=== PATIENT | female | born 1955 ===

== ENCOUNTER 2017-11-14 09:19 | Emergency (ER) | payer BC, OTHER ==
--- NOTE | 2017-11-14 10:31 | UC ---
Upper Extremity HPI - HPI Summary HPI Summary: 62 Y/O female being seen for L shoulder pain x 3 days. 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 Since then mobility has been limited with C/O shooting pain down her arm. Symptoms have increased as she states she has continued to try to care for her mother. Has been taking Advil with some relief. Medical history and medications have been reviewed at this visit. Blood pressure is elevated with a positive medical history of HTN. Confirms that she takes medication as directed. has been under pressure and stressed. discussed checking BP at home and for continued elevation should call primary care physician. - History of Current Complaint Chief Complaint: UCUpperExtremity Stated Complaint: ARM INJURY Time Seen by Provider: 11/14/17 10:21 Hx Obtained From: Patient Onset/Duration: Gradual Onset Severity Initially: Mild Severity Currently: Moderate Pain Intensity: 5 Pain Scale Used: 0-10 Numeric Location Of Pain: Radiates To - From shoulder to underarm and lower arm Character: Aching, Burning Aggravating Factor(s): Movement, Lifting Alleviating Factor(s): OTC Meds Associated Signs And Symptoms: Positive: Numbness/Tingling - Risk Factors Non-Orthopedic Risk Factor: Negative DVT Risk Factors: Negative Septic Arthritis Risk Factor: Negative - Allergies/Home Medications Allergies/Adverse Reactions: Allergies Allergy/AdvReac Type Severity Reaction Status Date / Time Amoxicillin Allergy Hives Verified 11/14/17 09:59 Lactose Intolerance (GI) Allergy GI Upset Verified 11/14/17 09:59 Penicillins [PCN] Allergy Hives Verified 11/14/17 09:59 Home Medications: Home Medications Bp Med 1 tab PO DAILY 11/14/17 [History Confirmed 11/14/17] Lansoprazole [Prevacid] 30 mg PO DAILY 11/14/17 [History Confirmed 11/14/17] Montelukast Sodium TAB* [Singulair TAB*] 10 mg PO DAILY 11/14/17 [History Confirmed 11/14/17] PMH/Surg Hx/FS Hx/Imm Hx Previously Healthy: Yes Cardiovascular History: Hypertension - Surgical History Surgical History: None - Social History Alcohol Use: None Substance Use Type: None Smoking Status (MU): Never Smoked Tobacco Review of Systems Constitutional: Negative Skin: Negative Eyes: Negative ENT: Negative Respiratory: Negative Cardiovascular: Negative Gastrointestinal: Negative Genitourinary: Negative Motor: Decreased ROM - L arm Neurovascular: Negative Musculoskeletal: Decreased ROM - L shoulder Neurological: Negative Psychological: Negative Is Patient Immunocompromised?: No All Other Systems Reviewed And Are Negative: Yes Physical Exam Triage Information Reviewed: Yes Appearance: Well-Appearing Vital Signs: Initial Vital Signs Temp 98.8 F 11/14/17 09:54 Pulse 88 11/14/17 09:54 Resp 16 11/14/17 09:54 BP 179/70 11/14/17 09:54 Pulse Ox 97 11/14/17 09:54 Vital Signs Reviewed: Yes Neck exam: Normal Neck: Positive: Supple Respiratory Exam: Normal Respiratory: Positive: Lungs clear Cardiovascular Exam: Normal Cardiovascular: Positive: RRR Musculoskeletal: Positive: ROM Limited @ - Left shoulder Neurological Exam: Normal Psychological Exam: Normal Skin Exam: Normal Upper Extremity Course/Dx - Differential Dx/Diagnosis Differential Diagnosis/HQI/PQRI: Bursitis, Strain, Sprain Provider Diagnoses: Bursitis / Strain Discharge - Discharge Plan Condition: Stable Disposition: HOME Patient Education Materials: Shoulder Bursitis (ED), Shoulder Pain (ED) Referrals: Jose Dueñas MD [Primary Care Provider] - Additional Instructions: Your XRay shows possible bursitis. Please follow up with your orthopedic physician for continued pain. Use shoulder sling if effective for relieving pain. Continue Ibuprofen (take with food- stop if you experience stomach upset) or voltaran cream as needed for pain, do not exceed recommended dosage. Your BP was elevated, follow up with your primary care provider if your pressure remains elevated. repeat BP 153/88. You may return to Urgent Care or follow up with your primary medical provider as needed for worsening symptoms.
--- NOTE | 2017-11-14 11:25 | RAD ---
INDICATION: Left shoulder pain x1 week in a caregiver COMPARISON: None. TECHNIQUE: 5 views of the left shoulder were obtained. FINDINGS: The adequately corticated bones are in normal alignment. Joint spaces appear maintained. Overlying the greater tuberosity is a 4 mm focal and well corticated calcification. No fracture, dislocation or focal bony abnormality is seen. IMPRESSION: A 4 MM CALCIFICATION JUST SUPERIOR TO THE GREATER TUBEROSITY COULD BE DUE TO CALCIFIC TENDINITIS OR CALCIFIC BURSITIS If the patient's symptoms persist, follow-up imaging is recommended.
[2017-11-14 11:41] VITALS: BP 153/88
== END 2017-11-14 11:51 | disposition home or self-care (01) ==
LOC: UCEAST 09:19
DX: M75.52 Bursitis of left shoulder (principal); S46.812A Strain of other muscles, fascia and tendons at shoulder and upper arm level, left arm, initial encounter; X50.0XXA Overexertion from strenuous movement or load, initial encounter; Y92.9 Unspecified place or not applicable; R93.7 Abnormal findings on diagnostic imaging of other parts of musculoskeletal system; Z88.1 Allergy status to other antibiotic agents; Z88.0 Allergy status to penicillin; I10 Essential (primary) hypertension
CPT/HCPCS: 99202; G0463